=== PATIENT | male | born 1990 | race Caucasian/White ===

== ENCOUNTER 2016-10-29 19:10 | Emergency (ER) | payer OTHER ==
[~2016-10-29 19:10] MED LIST: ALPR.25 PO; EPCLUSA PO
[2016-10-29 19:11] VITALS: BP 164/79; PULSE 81; RESP 15; TEMP 98; O2SAT 98
== END 2016-10-29 19:44 | disposition left against medical advice (07) ==
LOC: NED 19:10
DX: R53.1 Weakness (principal)
CPT/HCPCS: 99281

== ENCOUNTER 2016-11-01 15:02 | Emergency (ER) | payer OTHER ==
[~2016-11-01] VITALS: Ht 180.3 cm; Wt 80.0 kg
[2016-11-01 15:03] VITALS: BP 139/82; PULSE 172; RESP 22; TEMP 98.1; O2SAT 96
[2016-11-01] MEDS ORDERED: SODIUM CHLOR 0.9% 1000 ML INJ 1,000 ML IV ONE ×2 (15:15→15:30)
--- NOTE | 2016-11-01 15:16 | PD ---
HPI Chief Complaint: Alcohol/Drug Intoxication Time Seen by Provider: 15:16 Travel History International Travel<30 days: No Contact w/Intl Traveler<30days: No Traveled to known affect area: No History of Present Illness HPI 26 year old male with history of hepatitis C and IVDA presents to the ED for evaluation after injecting cocaine into his RUE. He presents with his shirt as a tourniquet around his right upper extremity. He states that after injecting the cocaine, he felt his right upper extremity "begin to swell." He applies the T-shirt in attempt to stop the drug from intravenous body. He states that he cannot have the drug interest body. He appears a bit paranoid at this moment. Denies chest pain or tightness. No difficulty breathing. No recent illnesses, fever, chills. Patient states that he just recently relapsed after a stent being clean. He has no other symptoms to report. PFSH Past Medical History Hx Anticoagulant Therapy: No Asthma: No Blood Disorders: No Anxiety: No Depression: No Heart Rhythm Problems: No Cardiovascular Problems: No Chemotherapy: No Chest Pain: No Cerebrovascular Accident: No Cystic Fibrosis: No Diabetes: No Diminished Hearing: No Gastrointestinal Disorders: No Genitourinary: No Headaches: Yes Hypertension: No Musculoskeletal: No Neurologic: Yes Psychiatric: No Respiratory: No Immunizations Current: Yes Migraines: No Seizures: No Sleep Apnea: No Past Surgical History Appendectomy: No Cholecystectomy: No Other Surgery: No Social History Alcohol Use: Yes (LAST NITE APPROX 0200, [facility]) Tobacco Use: Yes Substance Use: No Allergies-Medications (Allergen,Severity, Reaction): Coded Allergies: No Known Allergies (Verified , 11/01/16) Reported Meds & Prescriptions Reported Meds & Active Scripts Active Review of Systems Except as stated in HPI: all other systems reviewed are Neg Physical Exam Narrative GENERAL: Well-nourished male, ambulatory distress SKIN: Warm and dry. Diaphoresis. Multiple track stephen the right upper extremity. No erythema or edema. No palpable abscess. HEAD: Atraumatic. Normocephalic. EYES: Pupils equal and round. No scleral icterus. No injection or drainage. ENT: No nasal bleeding or discharge. Mucous membranes pink and moist. NECK: Trachea midline. No JVD. CARDIOVASCULAR: Tachycardic rate and rhythm. No murmur appreciated. RESPIRATORY: No accessory muscle use. Clear to auscultation. Breath sounds equal bilaterally. GASTROINTESTINAL: Abdomen soft, non-tender, nondistended. Hepatic and splenic margins not palpable. MUSCULOSKELETAL: No obvious deformities. No clubbing. No cyanosis. No edema. NEUROLOGICAL: Awake and alert. No obvious cranial nerve deficits. Motor grossly within normal limits. Normal speech. Data Data Last Documented VS Vital Signs Date Time Temp Pulse Resp B/P Pulse Ox O2 Delivery O2 Flow Rate FiO2 11/01/16 16:29 109 24 98 Room Air 11/01/16 15:03 98.1 139/82 Orders Iv Access Insert/Monitor (11/01/16 15:15) Complete Blood Count With Diff (11/01/16 15:15) Basic Metabolic Panel (Bmp) (11/01/16 15:15) Drug Screen, Random Urine (11/01/16 15:15) Sodium Chlor 0.9% 1000 Ml Inj (Ns 1000 M (11/01/16 15:15) Electrocardiogram (11/01/16 ) Lorazepam Inj (Ativan Inj) (11/01/16 15:30) Sodium Chlor 0.9% 1000 Ml Inj (Ns 1000 M (11/01/16 15:30) Labs Laboratory Tests Test 11/01/16 11/01/16 15:30 16:00 White Blood Count 10.3 TH/MM3 Red Blood Count 5.28 MIL/MM3 Hemoglobin 15.0 GM/DL Hematocrit 43.5 % Mean Corpuscular Volume 82.3 FL Mean Corpuscular Hemoglobin 28.4 PG Mean Corpuscular Hemoglobin 34.5 % Concent Red Cell Distribution Width 13.7 % Platelet Count 249 TH/MM3 Mean Platelet Volume 7.8 FL Neutrophils (%) (Auto) 74.9 % Lymphocytes (%) (Auto) 15.7 % Monocytes (%) (Auto) 8.6 % Eosinophils (%) (Auto) 0.3 % Basophils (%) (Auto) 0.5 % Neutrophils # (Auto) 7.7 TH/MM3 Lymphocytes # (Auto) 1.6 TH/MM3 Monocytes # (Auto) 0.9 TH/MM3 Eosinophils # (Auto) 0.0 TH/MM3 Basophils # (Auto) 0.0 TH/MM3 CBC Comment DIFF FINAL Differential Comment Sodium Level 136 MEQ/L Potassium Level 3.4 MEQ/L Chloride Level 101 MEQ/L Carbon Dioxide Level 25.3 MEQ/L Anion Gap 10 MEQ/L Blood Urea Nitrogen 13 MG/DL Creatinine 1.33 MG/DL Estimat Glomerular Filtration 80 ML/MIN Rate Random Glucose 91 MG/DL Calcium Level 9.3 MG/DL Urine Opiates Screen POS Urine Barbiturates Screen NEG Urine Amphetamines Screen NEG Urine Benzodiazepines Screen NEG Urine Cocaine Screen POS Urine Cannabinoids Screen POS MDM Medical Decision Making Medical Screen Exam Complete: Yes Emergency Medical Condition: Yes Medical Record Reviewed: Yes Differential Diagnosis Acute psychosis versus IV drug abuse versus mood disorder versus personality disorder versus a left slight abnormality versus dehydration Narrative Course 26-year-old male presents to emergency department following injecting cocaine into his right upper extremity. Patient appears a bit paranoid at this time. He is tachycardic and diaphoretic. Patient is given some Ativan and IV fluids. CBC and BMP are without acute concern. Patient has has mild renal insufficiency. Drug screen is positive for opiates, cocaine, and cannabinoids. Patient's heart rate has decreased upon reassessment. He will be discharged home. With patient's permission, I have updated his mother on the patient's condition. Diagnosis Primary Impression: IV drug abuse Additional Impressions: Substance abuse Tachycardia Referrals: [facility] (Out patient) Patient Instructions: General Instructions, Medical Clearance for Substance Abuse Treatment (ED) Additional Instructions: Maintain adequate oral hydration Follow-up with your primary care provider Seek assistance to stop using drugs Return immediately to the emergency department with any acute worsening symptoms Med/Other Pt SpecificInfo: No Change to Meds Disposition: 01 DISCHARGE HOME Condition: Stable DardenMillie ocampo BROCK Nov 01, 2016 15:16
[2016-11-01] MEDS ORDERED: LORazepam 2 MG/ML VIAL IV PUSH ONE (15:30)
[2016-11-01 16:01] LABS: AUTOMATED NEUTROPHIL # 7.7 TH/MM3 (1.8-7.7); BASOPHIL % 0.5 % (0.0-2.0); EOSINOPHIL % 0.3 % (0.0-4.0); HEMATOCRIT 43.5 % (39.0-51.0); HEMO FLAGS DIFF FINAL; LYMPH % 15.7 % (9.0-44.0); LYMPHOCYTE # 1.6 TH/MM3 (1.0-4.8); MEAN CELL VOLUME 82.3 FL (80.0-100.0); MEAN CORPUSCULAR HEMOGLOBIN 28.4 PG (27.0-34.0); MEAN CORPUSCULAR HGB CONC 34.5 % (32.0-36.0); MONO % 8.6 % (0.0-8.0); NEUT % 74.9 % (16.0-70.0); PLATELET COUNT 249 TH/MM3 (150-450); RED BLOOD COUNT 5.28 MIL/MM3 (4.50-5.90); RED CELL DISTRIBUTION WIDTH 13.7 % (11.6-17.2); WHITE BLOOD COUNT 10.3 TH/MM3 (4.0-11.0)
[2016-11-01 16:27] LABS: BICARBONATE 25.3 MEQ/L (21.0-32.0); POTASSIUM 3.4 MEQ/L (3.5-5.1)
[2016-11-01 16:35] LABS: AMPHETAMINE, URINE NEG (NEG); BARBITURATES, URINE NEG (NEG); COCAINE, URINE POS (NEG)
--- NOTE | 2016-11-01 17:52 | EKG ---
Date Performed: 11/01/2016 Time Performed: 15:37:44 PTAGE: 26 years EKG: Sinus rhythm RIGHT AXIS DEVIATION RIGHT BUNDLE BRANCH BLOCK ABNORMAL ECG PREVIOUS TRACING : 09/28/2015 17.17 Compared to previous tracing, heart rate has increased. DOCTOR: Beto Reed Interpretating Date/Time 11/01/2016 17:51:34
== END 2016-11-01 17:40 | disposition home or self-care (01) ==
LOC: NEPA 15:02
DX: F14.10 Cocaine abuse, uncomplicated (principal); F19.10 Other psychoactive substance abuse, uncomplicated; R00.0 Tachycardia, unspecified; R94.31 Abnormal electrocardiogram [ECG] [EKG]
CPT/HCPCS: 80048; 80307; 85025; 93005; 96361; 96374; 99283; J2060; J7030

== ENCOUNTER 2016-11-02 01:32 | Emergency (ER) | payer OTHER ==
[~2016-11-02] VITALS: Ht 182.9 cm; Wt 77.0 kg
[2016-11-02 01:35] VITALS: BP 150/69; PULSE 130; RESP 20; TEMP 98; O2SAT 98
--- NOTE | 2016-11-02 02:13 | RADRPT ---
EXAM DATE/TIME: 11/02/2016 02:02 [facility] COMPARISON: No previous studies available for comparison. INDICATIONS : Altered mental status. RADIATION DOSE: 56.35 CTDIvol (mGy) MEDICAL HISTORY : Hepatitis C. Substance abuse. SURGICAL HISTORY : None. ENCOUNTER: Initial ACUITY: 1 day PAIN SCALE: 0/10 LOCATION: cranial TECHNIQUE: Multiple contiguous axial images were obtained of the head. Using automated exposure control and adj ustment of the mA and/or kV according to patient size, radiation dose was kept as low as reasonably a chievable to obtain optimal diagnostic quality images. FINDINGS: CEREBRUM: The ventricles are normal for age. No evidence of midline shift, mass lesion, hemorrhage or acute in farction. No extra-axial fluid collections are seen. POSTERIOR FOSSA: The cerebellum and brainstem are intact. The 4th ventricle is midline. The cerebellopontine angle i s unremarkable. EXTRACRANIAL: The visualized portion of the orbits is intact. SKULL: The calvaria is intact. No evidence of skull fracture. CONCLUSION: Negative noncontrast head CT. Tank Edmondson MD on November 02, 2016 at 2:10 Board Certified Radiologist. This report was verified electronically.
--- NOTE | 2016-11-02 02:33 | RADRPT ---
EXAM DATE/TIME: 11/02/2016 02:22 [facility] COMPARISON: CHEST SINGLE AP, May 28, 2015, 1:02. INDICATIONS : Pt having chest pain and numbness in arms. MEDICAL HISTORY : Hepatitis C. ADHD, IV drug use SURGICAL HISTORY : None. ENCOUNTER: Initial ACUITY: 1 day PAIN SCORE: 8/10 LOCATION: Bilateral chest FINDINGS: A single view of the chest demonstrates the lungs to be symmetrically aerated without evidence of mas s, infiltrate or effusion. The cardiomediastinal contours are unremarkable. Osseous structures are intact. CONCLUSION: No evidence of acute cardiopulmonary disease. Tank Edmondson MD on November 02, 2016 at 2:31 Board Certified Radiologist. This report was verified electronically.
--- NOTE | 2016-11-02 02:55 | PD ---
HPI Chief Complaint: Psychiatric Symptoms Time Seen by Provider: 01:53 Travel History International Travel<30 days: No Contact w/Intl Traveler<30days: No Traveled to known affect area: No History of Present Illness HPI The patient is a 26 year old male who presents to the [facility] emergency department with a history of reportedly having a sensation that he has swelling to the top part of his head in the center aspect that began shortly after he was discharged from the hospital earlier today. The patient reports that he was seen in the hospital earlier today and had blood work done after he used IV cocaine and felt swelling and a "tensing" sensation going up the right arm. He reports that there were blotches all over his arm that were red in color. He reports that he tied a tourniquet around his right arm with his shirt and then came to the emergency department. He reports that he was told to take the tourniquet off and was given IV fluids and Ativan for anxiety. Laboratory studies were essentially unremarkable and the patient reports that his symptoms began to improve, therefore he was discharged home. The patient denies having any prior history of a psychiatric diagnosis, however when I asked about this, he reports that he came to the emergency department earlier in October related to a sensation that his heart was beating fast and "it felt like my brain was caving in." The patient reports that he did not wait to be evaluated in the emergency department on that occasion. The patient reports that he recently started using IV drugs again. The patient denies any recent fevers, cough, congestion, neck pain, chest pain, shortness of breath, abdominal pain, vomiting , diarrhea, urinary symptoms, or other neurologic symptoms. The patient denies any suicidal or homicidal ideations. [facility] Past Medical History Narrative Medical The patient's past medical history is significant for IV drug abuse, history of hepatitis C, history of headaches. Hx Anticoagulant Therapy: No ADHD: Yes Asthma: No Blood Disorders: No Anxiety: No Depression: No Heart Rhythm Problems: No Cardiovascular Problems: No Chemotherapy: No Chest Pain: No Cerebrovascular Accident: No Cystic Fibrosis: No Diabetes: No Diminished Hearing: No Gastrointestinal Disorders: No Genitourinary: No Headaches: Yes Hepatitis: Yes (C) Hypertension: No Musculoskeletal: No Neurologic: Yes Psychiatric: No Respiratory: No Immunizations Current: Yes Migraines: No Seizures: No Sleep Apnea: No Past Surgical History Narrative Surgical The patient's past surgical history is reportedly none. Appendectomy: No Cholecystectomy: No Other Surgery: No Social History Alcohol Use: Yes Tobacco Use: Yes (1PPD) Substance Use: Yes (COCAINE TODAY) Allergies-Medications (Allergen,Severity, Reaction): Coded Allergies: No Known Allergies (Verified , 11/02/16) Reported Meds & Prescriptions Reported Meds & Active Scripts Active Review of Systems Except as stated in HPI: all other systems reviewed are Neg General / Constitutional: No: Fever Eyes: No: Visual changes HENT: Positive: Headaches, No: Rhinorrhea, Congestion, Neck Stiffness, Neck Pain Cardiovascular: No: Chest Pain or Discomfort Respiratory: No: Shortness of Breath Gastrointestinal: No: Abdominal Pain Genitourinary: No: Dysuria Musculoskeletal: Positive: Myalgias, Pain, No: Edema Skin: No Rash Neurologic: No: Weakness Psychiatric: No: Depression Endocrine: No: Polydipsia Hematologic/Lymphatic: No: Easy Bruising Physical Exam Narrative General: The patient is a well-developed well-nourished male, anxious appearing on examination, repeatedly palpating his scalp, initially on arrival the patient was noted to have his shirt wrapped around his head. Head and Neck exam: Head is normocephalic atraumatic. No palpable abnormality of the patient's scalp on examination. No erythema or rash noted. No tenderness on palpation. Eyes: Pupils are equal round and reactive to light. Nose: Midline septum with pink mucous membranes Mouth: Dentition unremarkable. Moist mucus membranes. Posterior oropharynx is not erythematous. No tonsillar hypertrophy. Uvula midline. Airway patent. Neck: No palpable lymphadenopathy. No nuchal rigidity. No thyromegaly. Cardiovascular: Regular rate and rhythm without murmurs, gallops, or rubs. No pulse deficit to the extremities. Lungs: Clear to auscultation bilaterally. No wheezes, rhonchi, or rales. Abdomen: Soft, without tenderness to palpation in all 4 quadrants of the abdomen. No guarding, rebound, or rigidity. Normal bowel sounds are audible. Extremities: No clubbing, cyanosis, or edema. 2+ pulses in all 4 extremities. The patient has track stephen noted on the upper extremities. No focal signs of infection. Back: No spinous process tenderness to palpation. No costovertebral angle tenderness to palpation. Neurologic Exam: Cranial nerves 2-12 were intact on exam. Strength is 5/5 in all 4 extremities. No sensory deficits noted. Data Data Last Documented VS Vital Signs Date Time Temp Pulse Resp B/P Pulse Ox O2 Delivery O2 Flow Rate FiO2 11/02/16 01:35 98.0 130 20 150/69 98 Orders Chest, Single Ap (11/02/16 01:58) Ct Brain W/O Iv Contrast(Rout) (11/02/16 01:58) Psych Screen (11/02/16 01:58) MDM Medical Decision Making Medical Screen Exam Complete: Yes Emergency Medical Condition: Yes Medical Record Reviewed: Yes Interpretation(s) Last Impressions Head CT 11/02/16157 Signed Impressions: Service Date/Time: Wednesday, November 02, 2016 02:02 - CONCLUSION: Negative noncontrast head CT. Tank Edmondson MD Chest X-Ray 11/02/16157 Signed Impressions: Service Date/Time: Wednesday, November 02, 2016 02:22 - CONCLUSION: No evidence of acute cardiopulmonary disease. Tank Edmondson MD Differential Diagnosis Shingles, versus cellulitis, versus acute psychosis, versus anxiety disorder Narrative Course During the course of the patients emergency department visit, the patients history, examination, and differential diagnosis were reviewed with the patient. The patient's electronic medical record was reviewed. The patient was just seen earlier today in the emergency department related to similar symptoms in his arm. The patient had laboratory studies done that were essentially unremarkable, except for a urine drug screen positive for opiates, cocaine, marijuana. The patient was noted to be anxious, paranoid during his evaluation at that time. The patient had reportedly began to feel improved, therefore he was discharged home. To the patient that based on his exam, no acute abnormality is visible. At this point, there does not appear to be any need for repeat laboratory studies, however I did order a chest x-ray as this was not done previously, and a CT scan of the brain due to his head related symptoms. We also discussed him having a psychiatric screen. The patient initially agreed to have a psychiatric screen done to further discuss his symptoms. Radiology studies were reviewed and remarkable for a chest x-ray that showed no acute abnormality. CT scan of the brain showed no acute abnormality. While awaiting his psychiatric screen, the patient decided he did not want to wait anymore. The patient has a friend available at the bedside and will be driving him home. The patient elected to leave AGAINST MEDICAL ADVICE prior to the completion of his evaluation. AMA: The risks of leaving against medical advice without further evaluation treatment were discussed with the patient. These risks include cardiac dysfunction, cardiac dysrhythmia, possible heart attack, possible stroke or . The patient indicated understanding of these risks and appeared to have the capacity to make this decision. Diagnosis Primary Impression: Acute paranoia Disposition: 07 AGAINST MEDICAL ADVICE Condition: Stable Emerald Niño MD Nov 02, 2016 02:55
== END 2016-11-02 03:17 | disposition left against medical advice (07) ==
LOC: NEPE 01:32
DX: F22 Delusional disorders (principal)
CPT/HCPCS: 70450; 71010

== ENCOUNTER → 2017-07-29 | Outpatient (CLI) | payer OTHER ==
[2017-07-29 11:58] LABS: AUTOMATED NEUTROPHIL # 5.8 TH/MM3 (1.8-7.7); BASOPHIL % 0.5 % (0.0-2.0); EOSINOPHIL # 0.2 TH/MM3 (0-0.4); EOSINOPHIL % 2.6 % (0.0-4.0); HEMO FLAGS DIFF FINAL; LYMPH % 15.5 % (9.0-44.0); LYMPHOCYTE # 1.3 TH/MM3 (1.0-4.8); MEAN CELL VOLUME 84.9 FL (80.0-100.0); MEAN CORPUSCULAR HEMOGLOBIN 28.3 PG (27.0-34.0); MEAN CORPUSCULAR HGB CONC 33.4 % (32.0-36.0); MONO % 10.8 % (0.0-8.0); NEUT % 70.6 % (16.0-70.0); PLATELET COUNT 261 TH/MM3 (150-450); RED BLOOD COUNT 5.18 MIL/MM3 (4.50-5.90); WHITE BLOOD COUNT 8.2 TH/MM3 (4.0-11.0)
[2017-07-29 12:05] LABS: ANION GAP 7 MEQ/L (5-15); AST (GOT) 181 U/L (15-37); BICARBONATE 27.3 MEQ/L (21.0-32.0); BLOOD UREA NITROGEN 18 MG/DL (7-18); CHLORIDE 102 MEQ/L (98-107); GLUCOSE,FASTING 108 MG/DL (74-99); POTASSIUM 4.2 MEQ/L (3.5-5.1); SODIUM (NA) 136 MEQ/L (136-145)
[2017-07-29 12:17] LABS: ALKALINE PHOSPHATASE 96 U/L (45-117); ALT (GPT) 589 U/L (12-78); GLOMERULAR FILTRATION RATE 108 ML/MIN (>89); HDL CHOLESTEROL 47.2 MG/DL (40.0-60.0); LDL CHOLESTEROL 78 MG/DL (0-99); TOTAL BILIRUBIN ADULT 0.4 MG/DL (0.2-1.0)
[2017-07-29 12:18] LABS: CREATINE KINASE 35 U/L (39-308)
[2017-07-29 18:03] LABS: HEMOGLOBIN A1a 0.7 %; HEMOGLOBIN A1b 1.5 %; HEMOGLOBIN LA1C 2.1 %; HEMOGLOBIN P3 3.5 %
[2017-07-31 11:53] LABS: HCV RNA PCR LOGIU/ML 5.73 (0-1.18)
== END ==
LOC: ELAB 09:47
PROVIDERS: ATTEND Family Medicine
DX: B18.2 Chronic viral hepatitis C (principal); R01.0 Benign and innocent cardiac murmurs; F19.150 Other psychoactive substance abuse with psychoactive substance-induced psychotic disorder with delusions; F17.210 Nicotine dependence, cigarettes, uncomplicated; Z13.89 Encounter for screening for other disorder; Z71.51 Drug abuse counseling and surveillance of drug abuser; Z84.89 Family history of other specified conditions
CPT/HCPCS: 36415; 80053; 80061; 80074; 82550; 83036; 84443; 85025; 86703; 87522

== ENCOUNTER → 2017-09-17 | Outpatient (CLI) | payer OTHER ==
[2017-09-17 13:48] LABS: AUTOMATED NEUTROPHIL # 3.6 TH/MM3 (1.8-7.7); BASOPHIL % 0.4 % (0.0-2.0); EOSINOPHIL # 0.1 TH/MM3 (0-0.4); EOSINOPHIL % 1.7 % (0.0-4.0); HEMATOCRIT 48.5 % (39.0-51.0); HEMO FLAGS DIFF FINAL; LYMPH % 34.9 % (9.0-44.0); LYMPHOCYTE # 2.3 TH/MM3 (1.0-4.8); MEAN CELL VOLUME 84.8 FL (80.0-100.0); MEAN CORPUSCULAR HEMOGLOBIN 28.6 PG (27.0-34.0); MEAN CORPUSCULAR HGB CONC 33.7 % (32.0-36.0); MONO % 9.4 % (0.0-8.0); NEUT % 53.6 % (16.0-70.0); PLATELET COUNT 207 TH/MM3 (150-450); RED BLOOD COUNT 5.72 MIL/MM3 (4.50-5.90); WHITE BLOOD COUNT 6.6 TH/MM3 (4.0-11.0)
[2017-09-17 14:09] LABS: ALKALINE PHOSPHATASE 82 U/L (45-117); TOTAL BILIRUBIN ADULT 0.7 MG/DL (0.2-1.0)
[2017-09-17 14:11] LABS: ALT (GPT) 56 U/L (12-78); ANION GAP 7 MEQ/L (5-15); BICARBONATE 29.2 MEQ/L (21.0-32.0); BLOOD UREA NITROGEN 16 MG/DL (7-18); CHLORIDE 104 MEQ/L (98-107); GLOMERULAR FILTRATION RATE 104 ML/MIN (>89); GLUCOSE,FASTING 83 MG/DL (74-99); SODIUM (NA) 140 MEQ/L (136-145)
[2017-09-17 14:12] LABS: ALCOHOL LESS THAN 3 MG/DL (0-5); AST (GOT) 40 U/L (15-37); POTASSIUM 4.6 MEQ/L (3.5-5.1)
[2017-09-20 03:50] LABS: HCV RNA PCR LOGIU/ML 4.04 (0-1.18)
[2017-09-20 23:53] LABS: (LFP)ALT 39 U/L (9-46); A2 MACROGLOBULIN 133 mg/dL (106-279); FIBROSIS STAGE F0; GGT(LFP) 25 U/L (3-70); HAPTOGLOBIN (LFP) 144 mg/dL (43-212); NECROINFLAMM ACT GRADE A0; REFERENCE ID 1742514; TOTAL BILIRUBIN (LFP) 0.6 mg/dL (0.2-1.2)
== END ==
LOC: CLAB 13:08
PROVIDERS: ATTEND Internal Medicine Gastroenterology
DX: B18.2 Chronic viral hepatitis C (principal)
CPT/HCPCS: 36415; 80053; 80307; 82172; 82247; 82248; 82977; 83010; 83883; 84460; 85025; 87522

== ENCOUNTER 2017-11-04 10:28 | Day surgery (SDC) | payer OTHER ==
[2017-11-04] MEDS ORDERED: SODIUM CHLORID 0.9% 500 ML IV PRN (11:00)
[2017-11-04] MEDS ORDERED: INSULIN HUMAN REGULAR 1,000 UNITS/10 ML VIAL SQ PRN (11:00)
[2017-11-04] MEDS ORDERED: LACTATED RINGER'S 1000 ML IV PRN (11:00)
[2017-11-04] MEDS ORDERED: POVIDONE IODINE 5% (ANTISEPSIS KIT) 4 APPLICATIONS EACH NARE PRN (11:00)
[2017-11-04] MEDS ORDERED: CHLORHEXIDINE GLUCONATE 2 % 1 PACK (2 CLOTHS) TOPICAL PRN (11:00)
[2017-11-04] MEDS ORDERED: METOPROLOL TARTRATE 25 MG TAB PO PRN (11:00)
[2017-11-04] MEDS ORDERED: HYDR-3133 PO (12:28)
[2017-11-04] MEDS ORDERED: DEPA125T PO (12:28)
--- NOTE | 2017-11-04 13:36 | CF ---
cc: FORREST POLANCO MD Corrected: 11/05/17 DATE 11/04/2017 PROCEDURE PERFORMED EDWIGE INDICATIONS FOR PROCEDURE Atrial septal defect/infective endocarditis. PROCEDURE After informed consent, discussion of the risks and benefits, the patient was sedated by anesthesia/ A multiplane EDWIGE probe was advanced to the level of the mid esophagus and images obtained. The patient tolerated the procedure well. There were no complications. EDWIGE FINDINGS 1. LV systolic function, normal 2. RV is mildly dilated, RV systolic function is normal. 3. The anterior atrial septum is intact. 4. The left superior and inferior pulmonary veins were identified. I could not identify the right superior and inferior pulmonary veins well. They could not be well Visualized. 5. The mitral valve is normal in structure. 6. Tricuspid valve normal in structure with mild thickening. Trivial tricuspid insufficiency, trivial mitral regurgitation. 7. Aortic valve trileaflet. No stenosis or insufficiency. 8. Pulmonic valve not well seen. No significant insufficiency or stenosis. 9. No pericardial effusion. 10. No thrombi in the left atrial appendage. MD DAISY Oquendo/THERESA /1:25 PM /1:28 PM MTDAdolfo
== END 2017-11-04 14:52 | disposition home or self-care (01) ==
LOC: HDOC 10:28 → HDIC 10:29 → HDOC 14:52
PROVIDERS: ATTEND Internal Medicine Cardiovascular Disease
DX: Q21.1 Atrial septal defect (principal); I33.0 Acute and subacute infective endocarditis; I51.7 Cardiomegaly
CPT/HCPCS: 93312; 93320; 93325

== ENCOUNTER → 2017-11-19 | Outpatient (CLI) | payer OTHER ==
[~2017-11-19] MED LIST changes: -ALPR.25 PO; +DEPA125T PO; -EPCLUSA PO; +HYDR-3133 PO
== END ==
LOC: CLAB 08:24
PROVIDERS: ATTEND Internal Medicine Gastroenterology
DX: B18.2 Chronic viral hepatitis C (principal); Z79.899 Other long term (current) drug therapy
CPT/HCPCS: 80307

== ENCOUNTER 2018-02-18 00:27 | Emergency (ER) | payer OTHER ==
[~2018-02-18] VITALS: Ht 182.9 cm; Wt 93.0 kg
[2018-02-18 00:48] VITALS: BP 144/65; PULSE 86; RESP 14; TEMP 98.7; O2SAT 100
[2018-02-18] MEDS ORDERED: DALBAVANCIN INJ 1,500 MG in DEXTROSE 5% IN WATE 500 ML INJ 500 ML IV STA ×2 (01:29)
[2018-02-18] MEDS ORDERED: ASP: No known hypersensitivity to Vanco, Telavancin, Dalbavancin OTHER ONE (01:30)
[2018-02-18] MEDS ORDERED: ASP: Does not meet inpatient admission criteria OTHER ONE (01:30)
[2018-02-18] MEDS ORDERED: ASP: Only reason for admit - IV antibiotics OTHER ONE (01:30)
[2018-02-18] MEDS ORDERED: PHARMACY INFORMATION XX ONE (01:30)
[2018-02-18] MEDS ORDERED: ASP: Location of Dalbavancin administration OTHER ONE (01:30)
--- NOTE | 2018-02-18 02:13 | RADRPT ---
EXAM DATE/TIME: 02/18/2018 01:47 [facility] COMPARISON: No previous studies available for comparison. INDICATIONS : Patient has abscess on right hand at 5th MCPJ. Patient states it could be insect bite but could also be site of use for IV drug use. Inflammation to entire hand. MEDICAL HISTORY : None. SURGICAL HISTORY : None. ENCOUNTER: Initial ACUITY: 1 day PAIN SCORE: 7/10 LOCATION: Right 5th MCPJ FINDINGS: Three view examination of the right hand demonstrates no dislocation or fracture. Soft tissue swelli ng. The carpal bones appear intact. The interphalangeal and metacarpophalangeal joints are intact. Bony mineralization is normal. CONCLUSION: 1. Soft tissue swelling. Sumanth Hong Jr., MD on February 18, 2018 at 2:11 Board Certified Radiologist. This report was verified electronically.
[2018-02-18 02:22] LABS: ALT (GPT) 34 U/L (12-78); AST (GOT) 17 U/L (15-37); AUTOMATED NEUTROPHIL # 9.2 TH/MM3 (1.8-7.7); BASOPHIL % 0.4 % (0.0-2.0); BICARBONATE 30.5 MEQ/L (21.0-32.0); BLOOD UREA NITROGEN 12 MG/DL (7-18); CALCIUM 9.2 MG/DL (8.5-10.1); CHLORIDE 98 MEQ/L (98-107); EOSINOPHIL # 0.1 TH/MM3 (0-0.4); EOSINOPHIL % 0.9 % (0.0-4.0); GLOMERULAR FILTRATION RATE 74 ML/MIN (>89); GLUCOSE,RANDOM 85 MG/DL (74-106); HEMATOCRIT 44.6 % (39.0-51.0); HEMOGLOBIN 15.2 GM/DL (13.0-17.0); LYMPH % 13.7 % (9.0-44.0); LYMPHOCYTE # 1.6 TH/MM3 (1.0-4.8); MEAN CELL VOLUME 83.6 FL (80.0-100.0); MEAN CORPUSCULAR HEMOGLOBIN 28.5 PG (27.0-34.0); MEAN CORPUSCULAR HGB CONC 34.1 % (32.0-36.0); MEAN PLATELET VOLUME 7.6 FL (7.0-11.0); MONO % 7.6 % (0.0-8.0); MONOCYTE # 0.9 TH/MM3 (0-0.9); NEUT % 77.4 % (16.0-70.0); PLATELET COUNT 299 TH/MM3 (150-450); RED BLOOD COUNT 5.33 MIL/MM3 (4.50-5.90); RED CELL DISTRIBUTION WIDTH 12.6 % (11.6-17.2); SODIUM (NA) 136 MEQ/L (136-145); WHITE BLOOD COUNT 11.8 TH/MM3 (4.0-11.0)
[2018-02-18 02:25] LABS: ALKALINE PHOSPHATASE 73 U/L (45-117); TOTAL BILIRUBIN ADULT 0.9 MG/DL (0.2-1.0); TOTAL PROTEIN 8.3 GM/DL (6.4-8.2)
--- NOTE | 2018-02-18 02:41 | PD ---
HPI Chief Complaint: Edema Time Seen by Provider: 01:26 Travel History International Travel<30 days: No Contact w/Intl Traveler<30days: No Traveled to known affect area: No History of Present Illness HPI Patient is a 27-year-old male presenting to emergency department for evaluation of abscess to his right hand. Patient states it started 2 days ago. He reports that he occasionally injects heroin but does not inject into the area that is swollen. He reports his pain is an 8 out of 10, aching, constant in nature, he took 2 Lortab 10 mg tablets prior to arrival. Patient states he is homeless, he believes it could be an insect bite. He attempted to drain it himself with a razor blade. He denies any fever or chills, nausea, vomiting. Symptom onset was gradual, symptoms are moderate in nature. PFSH Past Medical History ADHD: Yes Headaches: Yes Hepatitis: Yes (C) Musculoskeletal: No Neurologic: Yes Psychiatric: No Respiratory: No Immunizations Current: Yes Migraines: No Seizures: No Sleep Apnea: No Influenza Vaccination: Yes Past Surgical History Appendectomy: No Cholecystectomy: No Other Surgery: No Social History Alcohol Use: Yes Tobacco Use: Yes (1PPD) Substance Use: Yes (COCAINE ) Allergies-Medications (Allergen,Severity, Reaction): Coded Allergies: No Known Allergies (Verified Allergy, Unknown, 02/18/18) Reported Meds & Prescriptions Reported Meds & Active Scripts Active Reported Hydroxyzine HCl 25 Mg Tab 50 Mg PO BID Depakote DR (Divalproex Sodium) 125 Mg Tabdr 125 Mg PO DAILY Review of Systems Except as stated in HPI: all other systems reviewed are Neg Musculoskeletal: Positive: Myalgias, Edema Skin: Positive Change in Pigmentation, Positive Lesions Physical Exam Narrative GENERAL: Disheveled, well-developed, well-nourished, male. Presenting in no acute distress. SKIN: Warm and dry. 1 cm area of fluctuance to the dorsal aspect of the right hand. Edema and erythema noted over the second through fifth metacarpals. HEAD: Atraumatic. Normocephalic. EYES: Pupils equal and round. No scleral icterus. No injection or drainage. ENT: No nasal bleeding or discharge. Mucous membranes pink and moist. NECK: Trachea midline. No JVD. CARDIOVASCULAR: Regular rate and rhythm. RESPIRATORY: No accessory muscle use. Clear to auscultation. Breath sounds equal bilaterally. GASTROINTESTINAL: Abdomen soft, non-tender, nondistended. Hepatic and splenic margins not palpable. MUSCULOSKELETAL: Extremities without clubbing, cyanosis, or edema. No obvious deformities. NEUROLOGICAL: Awake and alert. No obvious cranial nerve deficits. Motor grossly within normal limits. Five out of 5 muscle strength in the arms and legs. Normal speech. PSYCHIATRIC: Appropriate mood and affect; insight and judgment normal. Data Data Last Documented VS Vital Signs Date Time Temp Pulse Resp B/P (MAP) Pulse Ox O2 Delivery O2 Flow Rate FiO2 02/18/18 00:48 98.7 86 14 144/65 (91) 100 Orders Orders Blood Culture (02/18/18 01:29) Case Management Consult (02/18/18 ) Asp:No Reaction To [place]/Vanc (Asp Crit (02/18/18 01:30) Asp: Does Not Meet Inpt Admit (Asp Crit: (02/18/18 01:30) Asp: Iv Antibiotics Admit Only (Asp Crit (02/18/18 01:30) Asp: Location Of [place] Admin (Asp Crit: (02/18/18 01:30) Pharmacy Information ([facility] Info (02/18/18 01:30) [place]ancin Inj (Dalvance Inj) (02/18/18 01:29) Rex Bandage (02/18/18 01:29) Elevate (02/18/18 01:29) Document (02/18/18 01:29) Measurements (02/18/18 01:29) Hand, Complete ([id number]) (02/18/18 ) Wound Culture And Gram Stain (02/18/18 01:29) Complete Blood Count With Diff (02/18/18 01:35) Comprehensive Metabolic Panel (02/18/18 01:51) Labs Laboratory Tests Test 02/18/18 01:50 White Blood Count 11.8 TH/MM3 Red Blood Count 5.33 MIL/MM3 Hemoglobin 15.2 GM/DL Hematocrit 44.6 % Mean Corpuscular Volume 83.6 FL Mean Corpuscular Hemoglobin 28.5 PG Mean Corpuscular Hemoglobin Concent 34.1 % Red Cell Distribution Width 12.6 % Platelet Count 299 TH/MM3 Mean Platelet Volume 7.6 FL Neutrophils (%) (Auto) 77.4 % Lymphocytes (%) (Auto) 13.7 % Monocytes (%) (Auto) 7.6 % Eosinophils (%) (Auto) 0.9 % Basophils (%) (Auto) 0.4 % Neutrophils # (Auto) 9.2 TH/MM3 Lymphocytes # (Auto) 1.6 TH/MM3 Monocytes # (Auto) 0.9 TH/MM3 Eosinophils # (Auto) 0.1 TH/MM3 Basophils # (Auto) 0.0 TH/MM3 CBC Comment DIFF FINAL Differential Comment Blood Urea Nitrogen 12 MG/DL Creatinine 1.20 MG/DL Random Glucose 85 MG/DL Total Protein 8.3 GM/DL Albumin 4.0 GM/DL Calcium Level 9.2 MG/DL Alkaline Phosphatase 73 U/L Aspartate Amino Transf (AST/SGOT) 17 U/L Alanine Aminotransferase (ALT/SGPT) 34 U/L Total Bilirubin 0.9 MG/DL Sodium Level 136 MEQ/L Potassium Level 4.0 MEQ/L Chloride Level 98 MEQ/L Carbon Dioxide Level 30.5 MEQ/L Anion Gap 8 MEQ/L Estimat Glomerular Filtration Rate 74 ML/MIN MDM Medical Decision Making Medical Screen Exam Complete: Yes Emergency Medical Condition: Yes Interpretation(s) Last Impressions Hand X-Ray 02/18/18 0000 Signed Impressions: Service Date/Time: Sunday, February 18, 2018 01:47 - CONCLUSION: 1. Soft tissue swelling. Sumanth Hong Jr., MD Laboratory Tests Test 02/18/18 01:50 White Blood Count 11.8 TH/MM3 Red Blood Count 5.33 MIL/MM3 Hemoglobin 15.2 GM/DL Hematocrit 44.6 % Mean Corpuscular Volume 83.6 FL Mean Corpuscular Hemoglobin 28.5 PG Mean Corpuscular Hemoglobin Concent 34.1 % Red Cell Distribution Width 12.6 % Platelet Count 299 TH/MM3 Mean Platelet Volume 7.6 FL Neutrophils (%) (Auto) 77.4 % Lymphocytes (%) (Auto) 13.7 % Monocytes (%) (Auto) 7.6 % Eosinophils (%) (Auto) 0.9 % Basophils (%) (Auto) 0.4 % Neutrophils # (Auto) 9.2 TH/MM3 Lymphocytes # (Auto) 1.6 TH/MM3 Monocytes # (Auto) 0.9 TH/MM3 Eosinophils # (Auto) 0.1 TH/MM3 Basophils # (Auto) 0.0 TH/MM3 CBC Comment DIFF FINAL Differential Comment Blood Urea Nitrogen 12 MG/DL Creatinine 1.20 MG/DL Random Glucose 85 MG/DL Total Protein 8.3 GM/DL Albumin 4.0 GM/DL Calcium Level 9.2 MG/DL Alkaline Phosphatase 73 U/L Aspartate Amino Transf (AST/SGOT) 17 U/L Alanine Aminotransferase (ALT/SGPT) 34 U/L Total Bilirubin 0.9 MG/DL Sodium Level 136 MEQ/L Potassium Level 4.0 MEQ/L Chloride Level 98 MEQ/L Carbon Dioxide Level 30.5 MEQ/L Anion Gap 8 MEQ/L Estimat Glomerular Filtration Rate 74 ML/MIN Vital Signs Date Time Temp Pulse Resp B/P (MAP) Pulse Ox O2 Delivery O2 Flow Rate FiO2 02/18/18 00:48 98.7 86 14 144/65 (91) 100 Differential Diagnosis Abscess versus cellulitis versus intoxication versus other Narrative Course Patient is 27-year-old male presenting to the emergency depart for evaluation of an abscess to his right hand. Patient is currently homeless. Patient is likely to be noncompliant with antibiotic therapy for this reason patient will be given Dalvance. Labs and imaging ordered and pending. Patient addressed his own pain prior to arrival. Patient's vital signs are stable. CBC with white blood cell count of 11.8, chemistry is unremarkable. Blood cultures ordered and pending. X-ray of the right hand show soft tissue swelling. Please see procedure report for abscess I&D. Patient eloped prior to obtaining antibiotic infusion. He left with the IV in his arm. Police were notified. Procedures Procedure Narrative After the risks and benefits were discussed the following procedure was performed: INCISION AND DRAINAGE OF ABSCESS: The area was prepped and was sterilely draped. A subcutaneous wheal of 1 % Xylocaine with a total number 2 mL was used to anesthetize the area. The area was properly anesthetized. A number 11 scalpel was used to make a 1-cm incision across the area of the abscess. Cultures were obtained. The abscess was drained an irrigated with normal saline. Sterile dressing applied. Diagnosis Primary Impression: Left against medical advice Additional Instructions: Stop injecting drugs to avoid infection Keep wound clean and dry, covered with a dressing Return to emergency department for any new or worsening symptoms Dunia Rivers February 18, 2018 02:41
[2018-02-23] MEDS ORDERED: HYDR-3133 PO (15:38)
[2018-02-23] MEDS ORDERED: NICO14DI23 T-DERMAL (15:38)
[2018-02-23] MEDS ORDERED: LORA-392 PO (15:38)
[2018-02-23] MEDS ORDERED: DICL500 PO (20:21)
== END 2018-02-18 05:51 | disposition left against medical advice (07) ==
LOC: NEPD 00:27
DX: L02.511 Cutaneous abscess of right hand (principal)
CPT/HCPCS: 10060; 73130; 80053; 85025; 87040; 87070

== ENCOUNTER 2018-02-18 20:18 | Emergency (ER) | payer OTHER ==
[~2018-02-18] VITALS: Ht 182.9 cm; Wt 93.0 kg
[2018-02-18 23:17] VITALS: BP 131/61; PULSE 65; RESP 16; TEMP 97.6; O2SAT 97
--- NOTE | 2018-02-18 23:36 | PD ---
HPI Chief Complaint: Skin Problem Time Seen by Provider: 23:22 Travel History International Travel<30 days: No Contact w/Intl Traveler<30days: No Traveled to known affect area: No History of Present Illness HPI This is a 27-year-old male who presents to the emergency department with a history of IV drug use who came in with a hand abscess yesterday. He reports that he has had pus coming from his hand, constant, throughout the day, sick with no associated fever. He says the police came to his house and told him to come back to the emergency department for antibiotics. He left AGAINST MEDICAL ADVICE yesterday when he was waiting for [place]. PFSH Past Medical History ADHD: Yes Diminished Hearing: No Headaches: Yes Hepatitis: Yes (C) Musculoskeletal: No Neurologic: Yes Psychiatric: No Respiratory: No Immunizations Current: Yes Migraines: No Seizures: No Sleep Apnea: No Past Surgical History Appendectomy: No Cholecystectomy: No Other Surgery: No Social History Alcohol Use: Yes Tobacco Use: Yes (1PPD) Substance Use: Yes (COCAINE ) Allergies-Medications (Allergen,Severity, Reaction): Coded Allergies: No Known Allergies (Verified Allergy, Unknown, 02/18/18) Reported Meds & Prescriptions Reported Meds & Active Scripts Active Reported Hydroxyzine HCl 25 Mg Tab 50 Mg PO BID Depakote DR (Divalproex Sodium) 125 Mg Tabdr 125 Mg PO DAILY Review of Systems Except as stated in HPI: all other systems reviewed are Neg Physical Exam Narrative GENERAL:Well appearing, no acute distress SKIN: Swelling of the dorsum of the right hand with some warmth, purulent drainage from an incision HEAD: Atraumatic. Normocephalic. EYES: Pupils equal and round. No injection or drainage. ENT: Moist mucous membranes NECK: Trachea midline. CARDIOVASCULAR: Regular rate and rhythm. No murmur appreciated. RESPIRATORY: Clear to auscultation. Breath sounds equal bilaterally. GASTROINTESTINAL: Abdomen soft, non-tender, nondistended. MUSCULOSKELETAL: No obvious deformities. NEUROLOGICAL: Awake and alert. No obvious cranial nerve deficits. Moving all extremities. PSYCHIATRIC: Appropriate mood and affect; insight and judgment normal. Data Data Last Documented VS Vital Signs Date Time Temp Pulse Resp B/P (MAP) Pulse Ox O2 Delivery O2 Flow Rate FiO2 02/18/18 23:17 97.6 65 16 131/61 (84) 97 Room Air MDM Medical Decision Making Medical Screen Exam Complete: Yes Emergency Medical Condition: Yes Differential Diagnosis Abscess, sepsis, endocarditis Narrative Course This is a 27-year-old male who has a history of IV drug use who presents to the emergency department having had hand abscess having had blood cultures drawn yesterday which are growing gram-positive cocci in 1 bottle. Concern would be this is MRSA given the patient history of IV drug use. He was advised that he needs to stay in the hospital and receive IV antibiotics and have an evaluation for possible endocarditis. He expressed understanding that this is life- threatening. He says he understands this is very serious and he plans to check right back into the emergency department but right now he needs to leave and go arrange for childcare for his son. He has decision-making capacity. He will be discharged AGAINST MEDICAL ADVICE. Diagnosis Primary Impression: Bacteremia Additional Instructions: Come right back to the emergency department and you will be admitted to the hospital because there is bacteria in your blood Disposition: 07 AGAINST MEDICAL ADVICE Condition: Doris Interiano MD February 18, 2018 23:36
[2018-02-23] MEDS ORDERED: NICO14DI23 T-DERMAL (15:38)
[2018-02-23] MEDS ORDERED: HYDR-3133 PO (15:38)
[2018-02-23] MEDS ORDERED: LORA-392 PO (15:38)
[2018-02-23] MEDS ORDERED: DICL500 PO (20:21)
== END 2018-02-18 23:51 | disposition left against medical advice (07) ==
LOC: NEPC 20:18
DX: R78.81 Bacteremia (principal); F17.200 Nicotine dependence, unspecified, uncomplicated; F19.90 Other psychoactive substance use, unspecified, uncomplicated
CPT/HCPCS: 99281

== ENCOUNTER 2018-02-19 01:22 | Inpatient (IN) | END 2018-02-23 21:40 | disposition home or self-care (01) | DRG 854 | DX: R78.81 Bacteremia (principal); L02.413 Cutaneous abscess of right upper limb; F11.23 Opioid dependence with withdrawal; L02.511 Cutaneous abscess of right hand; F14.23 Cocaine dependence with withdrawal; K02.9 Dental caries, unspecified; F60.2 Antisocial personality disorder; R19.7 Diarrhea, unspecified; B95.7 Other staphylococcus as the cause of diseases classified elsewhere; F90.9 Attention-deficit hyperactivity disorder, unspecified type; F17.210 Nicotine dependence, cigarettes, uncomplicated ==